=== PATIENT | female | born 2000 | race Caucasian/White ===

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

== ENCOUNTER 2022-06-13 12:18 | Emergency (ER) | payer OTHER ==
[~2022-06-13] VITALS: Ht 172.7 cm; Wt 73.5 kg
[2022-06-13] MEDS ORDERED: ACETAMINOPHEN EXTRA STRENGTH 500 MG TAB PO ONE (12:25)
[2022-06-13] MEDS ORDERED: ACETAMINOPHEN EXTRA STRENGTH 500 MG TAB ONE (12:25)
[2022-06-13 12:27] VITALS: BP 113/66
--- NOTE | 2022-06-13 12:30 | NUR ---
BIB SELF C/O FEVER, CHILLS, COUGH, 10/10 [place], CONGESTION , N/V/D X 2 DAYS. PMH: DENIES
--- NOTE | 2022-06-13 12:31 | NUR ---
COVID, FLU SWABS DONE.
[2022-06-13] MEDS ORDERED: IBUP-2213 PO (15:53)
[2022-06-13] MEDS ORDERED: TAM75 PO (15:53)
[2022-06-13] MEDS ORDERED: ONDA-188 SL (15:53)
[2022-06-13 16:02] VITALS: BP 113/57
--- NOTE | 2022-06-13 16:02 | NUR ---
Patient discharged with v/s stable. Written and verbal after care instructions given. Patient alert, oriented and verbalized understanding of instructions. Ambulatory with steady gait. All questions addressed prior to discharge. ID band removed. Patient advised to follow up with PMD. Rx of [place], Ibuprofen and Zofran given. Opportunity to ask questions provided and answered. WORK NOTE HANDED TO PATIENT.
--- NOTE | 2022-06-13 16:34 | NUR ---
The patient's care was reviewed and supervised by [place] [facility] ED, RN.
== END 2022-06-13 16:02 | disposition home or self-care (01) ==
LOC: MED 12:18
DX: J10.1 Influenza due to other identified influenza virus with other respiratory manifestations (principal); Z20.822 Contact with and (suspected) exposure to COVID-19
CPT/HCPCS: 99283